=== PATIENT | male | born 1980 | race Caucasian/White ===

== ENCOUNTER 2017-03-07 12:59 | Inpatient (IN) | payer OTHER ==
--- NOTE | 2017-03-07 13:38 | ER Document Report ---
ED Medical Screen (RME) <OLIMPIA DUNLAP - Last Filed: 03/07/17 13:37> - General Information source: Patient - HPI Patient complains to provider of: Fever chills nausea vomiting right testicular discomfort for 3 days <FESTEPHANESHANA Hansen - Last Filed: 03/07/17 17:48> - General Chief Complaint: Testicular Pain Stated Complaint: TESTICLE PROBLEM Time Seen by Provider: 03/07/17 13:36 Notes: Patient is complaining of pain in the right testicle started yesterday while at work. It is sore to the touch and goes into the groin area. He is not sure if it is swollen. Also some pain in the back of his right lower leg. Recalls no injury or unusual activity for him. It hurts to walk. He says he has had pain in both testicles in the past. Denies any UTI symptoms. Today, while at work, the patient began to develop a headache and feel disoriented. He was having chills and sweats. Patient has a history of PTSD and psoriasis. (OLIMPIA DUNLAP) - Related Data Allergies/Adverse Reactions: No Known Allergies Allergy (Verified 03/20/12 12:49) Past Medical History Renal/ Medical History: Denies: Hx Peritoneal Dialysis Past Surgical History: Reports: Hx Orthopedic Surgery - R knee ACL <OLIMPIA DUNLAP - Last Filed: 03/07/17 13:37> - General Information source: Patient - Social History Frequency of alcohol use: Rare Drug Abuse: None Lives with: Family <RAJEEVSHANA Hansen - Last Filed: 03/07/17 17:48> Review of Systems - Review of Systems Constitutional: No symptoms reported EENT: No symptoms reported Cardiovascular: No symptoms reported Respiratory: No symptoms reported Gastrointestinal: No symptoms reported Genitourinary: No symptoms reported Male Genitourinary: No symptoms reported Musculoskeletal: No symptoms reported Skin: No symptoms reported Hematologic/Lymphatic: No symptoms reported Neurological/Psychological: No symptoms reported <RAJEEVSHANA Hansen - Last Filed: 03/07/17 17:48> Physical Exam - Vital signs Interpretation: Normal - General General appearance: Appears well, Alert - HEENT Head: Normocephalic, Atraumatic Eyes: Normal Pupils: PERRL - Respiratory Respiratory status: No respiratory distress Chest status: Nontender Breath sounds: Normal Chest palpation: Normal - Cardiovascular Rhythm: Regular Heart sounds: Normal auscultation Murmur: No - Abdominal Inspection: Normal Distension: No distension Bowel sounds: Normal Tenderness: Nontender Organomegaly: No organomegaly - Genitourinary Tenderness: Epididymis tender - Right sided tenderness - Back Back: Normal, Nontender - Extremities General upper extremity: Normal inspection, Nontender, Normal color, Normal ROM , Normal temperature General lower extremity: Normal inspection, Nontender, Normal color, Normal ROM , Normal temperature, Normal weight bearing. No: Luciano's sign - Neurological Neuro grossly intact: Yes Cognition: Normal Orientation: AAOx4 Comfrey Coma Scale Eye Opening: Spontaneous Juan Manuel Coma Scale Verbal: Oriented Juan Manuel Coma Scale Motor: Obeys Commands Comfrey Coma Scale Total: 15 Speech: Normal Motor strength normal: LUE, RUE, LLE, RLE Sensory: Normal - Psychological Associated symptoms: Normal affect, Normal mood - Skin Skin Temperature: Warm Skin Moisture: Dry Skin Color: Normal <SHANA BOO - Last Filed: 03/07/17 17:48> - Vital signs Vitals: Temp Pulse Resp BP 99.5 F 141 H 16 135/82 H 03/07/17 13:04 03/07/17 13:04 03/07/17 13:04 03/07/17 13:04 Course <OLIMPIA DUNLAP - Last Filed: 03/07/17 13:37> - Laboratory Result Diagrams: 03/07/17 14:30 03/07/17 14:30 <SHANA BOO - Last Filed: 03/07/17 17:48> - Re-evaluation Re-evalutation: 03/07/17 17:44 This 36-year-old male who presented to the emergency room today stating he had right testicular discomfort ongoing for about 3 days he states that he has had reasonable urinary output and that while he was doing a lot of barbecuing over the weekend he had been drinking a lot of fluid he has in fact urinated twice today. States that while he was at work he became nauseous with one episode of vomiting some dizziness and noticed that he was rather febrile. His heart rate in triage was 133 with a 101.9 temperature meaning sepsis criteria for routine evaluation lactic acid came back 3.1 with a white count of 17.4 ultrasound was obtained indicating that he did not fact have some epididymitis. CT abdomen pelvis was performed indicating that he had a nonobstructing stone in the left pole of the kidney as well as a 5 mm nodule in the right lung which should be noted that this patient is not a smoker. Chen was called for admission who stated that Dr. Powell would be happy to observe this patient on observation (SHANA BOO) - Vital Signs Vital signs: Temp Pulse Resp BP Pulse Ox 98.4 F 96 18 123/69 94 03/07/17 16:15 03/07/17 16:15 03/07/17 16:15 03/07/17 16:15 03/07/17 16:15 - Laboratory Laboratory results interpreted by me: 03/07/17 03/07/17 03/07/17 14:30 14:30 14:30 WBC 17.4 H Seg Neutrophils % 84.1 H Lymphocytes % 6.7 L Absolute Neutrophils 14.6 H Absolute Monocytes 1.6 H Glucose 127 H Lactic Acid 3.1 H Urine Ketones 03/07/17 15:59 WBC Seg Neutrophils % Lymphocytes % Absolute Neutrophils Absolute Monocytes Glucose Lactic Acid Urine Ketones TRACE H Doctor's Discharge <OLIMPIA DUNLAP - Last Filed: 03/07/17 13:37> <SHANA BOO - Last Filed: 03/07/17 17:48> - Discharge Clinical Impression: Acute epididymitis, Sepsis Disposition: ADMITTED OBSERVATION Additional Instructions: Continue observation to Dr. Powell
[2017-03-07] MEDS ORDERED: IBUPROFEN 600 MG TABLET PO ONE (13:39)
[2017-03-07] MEDS ORDERED: PROMETHAZINE HCL 25 MG TABLET PO ONE (13:39)
[2017-03-07] MEDS ORDERED: NORMAL SALINE 1000 ML 1,000 ML IV ONE (13:45)
[2017-03-07 15:02] LABS: ABSOLUTE LYMPHOCYTES (AUTO) 1.2 10^3/uL (0.5-4.7); ABSOLUTE MONOCYTES (AUTO) 1.6 10^3/uL (0.1-1.4); ABSOLUTE NEUT (AUTO) 14.6 10^3/uL (1.7-8.2); BASOPHILS % (AUTO) 0.2 % (0-2); HEMATOCRIT 46.9 % (37.9-51.0); HEMOGLOBIN 15.9 g/dL (13.5-17.0); HGB HCT DIFFERENCE 0.8; LYMPHOCYTES % (AUTO) 6.7 % (13-45); MEAN CORPUSCULAR HEMOGLOBIN 30.7 pg (27.0-33.4); MEAN CORPUSCULAR VOLUME 90 fl (80-97); RED CELL DISTRIBUTION WIDTH 13.2 % (11.5-14.0); SEGMENTED NEUTROPHILS % (AUTO) 84.1 % (42-78); WHITE BLOOD COUNT 17.4 10^3/uL (4.0-10.5)
[2017-03-07 15:23] LABS: ALANINE AMINOTRANSFERASE 37 U/L (21-72); ALBUMIN 4.6 g/dL (3.5-5.0); ALKALINE PHOSPHATASE 55 U/L (38-126); ANION GAP 16 (5-19); ASPARTATE AMINO TRANSFERASE 30 U/L (17-59); BILIRUBIN,DIRECT 0.3 mg/dL (0.0-0.4); BLOOD UREA NITROGEN 13 mg/dL (7-20); CALCIUM 10.2 mg/dL (8.4-10.2); CARBON DIOXIDE 22 mmol/L (22-30); CHLORIDE 99 mmol/L (98-107); GLUCOSE 127 mg/dL (75-110); POTASSIUM 3.7 mmol/L (3.6-5.0); SODIUM 137.4 mmol/L (137-145); TOTAL PROTEIN 7.5 g/dL (6.3-8.2)
--- NOTE | 2017-03-07 16:16 | RADIOLOGY REPORT (SQ) ---
EXAM DESCRIPTION: U/S SCROTUM W/DOPPLER COMPLETED DATE/TIME: 03/07/2017 3:55 pm REASON FOR STUDY: testicular pain COMPARISON: None. TECHNIQUE: Static and realtime nassar scale imaging of the scrotum and testes. Selected color Doppler and spectral images recorded to document blood flow. LIMITATIONS: None. FINDINGS: RIGHT: TESTICLE: Normal size, 43 x 32 x 28 mm. Normal echotexture. Normal blood flow. No mass EPIDIDYMIS: 14 x 15 x 10 mm. This is larger than on left side. There are couple small cystic areas. HYDROCELE OR VARICOCELE: No. HERNIA OR EXTRA-TESTICULAR MASS: No. OTHER: No other significant finding. LEFT: TESTICLE: Normal size, 45 x 31 x 24 mm. Normal echotexture. Normal blood flow. No mass. EPIDIDYMIS: 11 x 14 x 9 mm. Contains some small cystic areas. HYDROCELE OR VARICOCELE: No. HERNIA OR EXTRA-TESTICULAR MASS: No. OTHER: No other significant finding. IMPRESSION: 1. There is no testicular torsion. 2. There are epididymal cysts bilaterally. 3. The right epididymis is larger than the left. Is there clinical evidence of epididymitis? TECHNICAL DOCUMENTATION: JOB ID: [id number]- All Rights Reserved
[2017-03-07 16:19] LABS: APPEARANCE,URINE CLEAR; BILIRUBIN,URINE NEGATIVE (NEGATIVE); GLUCOSE, URINE NEGATIVE (NEGATIVE); KETONES,URINE TRACE mg/dL (NEGATIVE); LEUKOCYTE ESTERASE,URINE NEGATIVE (NEGATIVE); NITRITE,URINE NEGATIVE (NEGATIVE); PROTEIN,URINE NEGATIVE (NEGATIVE); URINE SPECIFIC GRAVITY 1.008; UROBILINOGEN,URINE NEGATIVE mg/dL (<2.0)
[2017-03-07] MEDS ORDERED: NORMAL SALINE 1000 ML 3,000 ML IV ONE (16:19)
[2017-03-07] MEDS ORDERED: CEFTRIAXONE INJ 1000 MG VIAL IV ONE (16:20)
--- NOTE | 2017-03-07 17:00 | RADIOLOGY REPORT (SQ) ---
EXAM DESCRIPTION: CHEST PA/LAT COMPLETED DATE/TIME: 03/07/2017 4:50 pm REASON FOR STUDY: cough COMPARISON: 03/20/2012 EXAM PARAMETERS: NUMBER OF VIEWS: two views TECHNIQUE: Digital Frontal and Lateral radiographic views of the chest acquired. RADIATION DOSE: NA LIMITATIONS: none FINDINGS: LUNGS AND PLEURA: No opacities, masses or pneumothorax. No pleural effusion. MEDIASTINUM AND HILAR STRUCTURES: No masses or contour abnormalities. HEART AND VASCULAR STRUCTURES: Heart normal size. No evidence for failure. BONES: No acute findings. HARDWARE: None in the chest. OTHER: No other significant finding. IMPRESSION: NO SIGNIFICANT RADIOGRAPHIC FINDING IN THE CHEST. TECHNICAL DOCUMENTATION: JOB ID: [id number] [employer]- All Rights Reserved
--- NOTE | 2017-03-07 17:15 | RADIOLOGY REPORT (SQ) ---
EXAM DESCRIPTION: CT ABD/PELVIS WITH IV ONLY COMPLETED DATE/TIME: 03/07/2017 4:45 pm REASON FOR STUDY: grion pain increase lactic acid COMPARISON: None. TECHNIQUE: CT scan of the abdomen and pelvis performed using helical scanning technique with dynamic intravenous contrast injection. No oral contrast. Images reviewed with lung, soft tissue, and bone windows. Reconstructed coronal and sagittal MPR images reviewed. Delayed images for evaluation of the urinary system also acquired. All images stored on PACS. All CT scanners at this facility use dose modulation, iterative reconstruction, and/or weight based d osing when appropriate to reduce radiation dose to as low as reasonably achievable (ALARA). [facility]: Dose Right [facility]: CareDose [facility]: Dose Right [facility]: Teradose 4D [facility]: [employer] CONTRAST TYPE AND DOSE: 100mL Isovue 370- low osmolar. RENAL FUNCTION: Creatinine 0.9 RADIATION DOSE: 42.28mGy. LIMITATIONS: None. FINDINGS: LOWER CHEST: Minimal dependent atelectasis or scarring. 5 mm nodule in the right lower lo be. LIVER: Normal size. No masses or dilated ducts. SPLEEN: Normal size. No focal lesions. PANCREAS: No masses. No significant calcifications. No adjacent inflammation or peripancreatic fluid collections. Pancreatic duct not dilated. GALLBLADDER: No identified stones by CT criteria. No inflammatory changes to suggest cholecystitis. ADRENAL GLANDS: No significant masses or asymmetry. RIGHT KIDNEY AND URETER: No solid masses. No significant calcifications. No hydronephrosis or hyd roureter. LEFT KIDNEY AND URETER: No solid masses. 4 mm nonobstructing stone in the lower pole. No hydronep hrosis or hydroureter. AORTA AND VESSELS: No aneurysm. No dissection. Renal arteries, SMA, celiac without stenosis. RETROPERITONEUM: No retroperitoneal adenopathy, hemorrhage or masses. BOWEL AND PERITONEAL CAVITY: No masses or inflammatory changes. No free fluid or peritoneal masses. APPENDIX: Normal. PELVIS: No mass or free fluid. Normal bladder. ABDOMINAL WALL: No masses. No hernias. BONES: No significant or acute findings. Mild degenerative disc disease at L5-S1. OTHER: No other significant finding. IMPRESSION: 1. 4 mm nonobstructing stone in the lower pole of the left kidney otherwise normal-appe aring abdomen and pelvis. 2. 5 mm nodule in the right lung base. COMMENT: FLEISCHNER CRITERIA FOR FOLLOW-UP OF PULMONARY NODULES Incidentally detected new nodules in persons 35 or older. HIGH RISK: History of smoking or other known risk factors. <6mm single solid nodule: LOW RISK: no routine followup. HIGH RISK: optional CT 12 mo. TECHNICAL DOCUMENTATION: JOB ID: [id number] Quality ID # [id number]: Final reports with documentation of one or more dose reduction techniques (e.g., Au tomated exposure control, adjustment of the mA and/or kV according to patient size, use of iterative reconstruction technique) 2010 [employer]- All Rights Reserved
--- NOTE | 2017-03-07 18:40 | EKG REPORT ---
SEVERITY:- BORDERLINE ECG - SINUS TACHYCARDIA PROBABLE LEFT ATRIAL ABNORMALITY BORDERLINE T ABNORMALITIES, INFERIOR LEADS : Confirmed by: Zaire Perez MD 07-Mar-2017 18:39:18
[2017-03-07] MEDS ORDERED: CALCIUM CARBONATE 500 MG TABLET PO PRN (19:46)
[2017-03-07] MEDS ORDERED: HYDRALAZINE HCL INJ/PF 20 MG/1 ML SDV IV PRN (19:46)
[2017-03-07] MEDS ORDERED: ACETAMINOPHEN 325 MG TABLET PO PRN (19:46)
[2017-03-07] MEDS ORDERED: MAGNESIUM HYDROXIDE SUSP 30 ML UDCUP PO PRN (19:54)
[2017-03-07] MEDS ORDERED: PROMETHAZINE HCL 25 MG TABLET PO PRN (19:54)
[2017-03-07] MEDS ORDERED: NORMAL SALINE 1000 ML 1,000 ML IV SCH (20:00)
[2017-03-07] MEDS: KETOROLAC TROMETHAMINE INJ/PF 30 MG/1 ML SDV IV PRN (20:32)
[2017-03-07 22:17] LABS: CHLAM PCR NOT DETECTED (NOT DETECT)
[2017-03-07] MEDS: DOXYCYCLINE HYCLATE 100 MG in DEXTROSE 5%-WATER 250 ML IV SCH (22:22)
[2017-03-07] MEDS: GABAPENTIN 300 MG CAPSULE PO SCH (22:22)
[2017-03-07] MEDS: HEPARIN SOD (PORCINE) 5,000 UNIT/ML 1 ML SYRINGE SUBCUT SCH (22:22)
[2017-03-08] MEDS: KETOROLAC TROMETHAMINE INJ/PF 30 MG/1 ML SDV IV PRN ×3 (03:36→18:17)
[2017-03-08] MEDS: HEPARIN SOD (PORCINE) 5,000 UNIT/ML 1 ML SYRINGE SUBCUT SCH ×3 (05:28→22:17)
--- NOTE | 2017-03-08 05:57 | PDOC H&P ---
History of Present Illness Admission Date/PCP: 03/07/17 19:55 Patient complains of: Testicular pain History of Present Illness: PERLA RAMIREZ is a 36 year old male with a past medical history of morbid obesity, Depression, Chronic back pain and psoriasis who had been in his usual state of health recently 3 days ago he was noted pain to his right testicle associated with subjective fever and chills. Think him to seek evaluation in the emergency room where he was found to have physical exam suggestive of epididymitis, hypotension with leukocytosis and referred to the hospitalist for admission. Additional workup of a scrotal ultrasound is negative for testicular torsion. A CT of the abdomen and pelvis show nonobstructing left- sided renal stone and a 5 mm right lung nodule recommending follow-up and 6 months. Denies new sexual partner, trauma or previous episode of testicular pain. Past Medical History Endocrine Medical History: Reports: Obesity Skin Medical History: Reports: Psoriasis Psychiatric Medical History: Reports: Depression Past Surgical History Past Surgical History: Reports: Orthopedic Surgery - R knee ACL Social History Information Source: Patient Lives with: Family Smoking Status: Never Smoker Frequency of Alcohol Use: Rare Hx Recreational Drug Use: No Drugs: None Hx Prescription Drug Abuse: No - Advance Directive Resuscitation Status: Full Code Family History Family History: Hypertension Parental Family History Reviewed: Yes Children Family History Reviewed: Yes Sibling(s) Family History Reviewed.: Yes Medication/Allergy Home Medications: Gabapentin [Neurontin 300 mg Capsule] 300 mg PO Q12 03/07/17 Allergies/Adverse Reactions: No Known Allergies Allergy (Verified 03/20/12 12:49) Review of Systems Constitutional: ABSENT: chills, fever(s), headache(s), weight gain, weight loss Eyes: ABSENT: visual disturbances Ears: ABSENT: hearing changes Cardiovascular: ABSENT: chest pain, dyspnea on exertion, edema, orthropnea, palpitations Respiratory: ABSENT: cough, hemoptysis Gastrointestinal: ABSENT: abdominal pain, constipation, diarrhea, hematemesis, hematochezia, nausea, vomiting Genitourinary: ABSENT: dysuria, hematuria Musculoskeletal: ABSENT: joint swelling Integumentary: ABSENT: rash, wounds Neurological: ABSENT: abnormal gait, abnormal speech, confusion, dizziness, focal weakness, syncope Psychiatric: ABSENT: anxiety, depression, homidical ideation, suicidal ideation Endocrine: ABSENT: cold intolerance, heat intolerance, polydipsia, polyuria Hematologic/Lymphatic: ABSENT: easy bleeding, easy bruising Physical Exam Vital Signs: Temp Pulse Resp BP Pulse Ox 97.9 F 113 H 18 139/82 H 97 03/08/17 04:00 03/08/17 04:00 03/08/17 04:00 03/08/17 04:00 03/08/17 04:00 Intake & Output 03/06/17 03/07/17 03/08/17 11:59 11:59 11:59 Intake Total 2950 Output Total 850 Balance 2100 General appearance: PRESENT: mild distress, well-developed, well-nourished Head exam: PRESENT: atraumatic, normocephalic Eye exam: PRESENT: conjunctiva pink, EOMI, PERRLA. ABSENT: scleral icterus Ear exam: PRESENT: normal external ear exam Mouth exam: PRESENT: moist, tongue midline Neck exam: ABSENT: carotid bruit, JVD, lymphadenopathy, thyromegaly Respiratory exam: PRESENT: clear to auscultation alma. ABSENT: rales, rhonchi, wheezes Cardiovascular exam: PRESENT: RRR. ABSENT: diastolic murmur, rubs, systolic murmur Pulses: PRESENT: normal dorsalis pedis pul Vascular exam: PRESENT: normal capillary refill GI/Abdominal exam: PRESENT: normal bowel sounds, soft. ABSENT: distended, guarding, mass, organolmegaly, rebound, tenderness Rectal exam: PRESENT: deferred Gentrourinary exam: PRESENT: testicular tenderness Extremities exam: PRESENT: full ROM. ABSENT: calf tenderness, clubbing, pedal edema Neurological exam: PRESENT: alert, awake, oriented to person, oriented to place , oriented to time, oriented to situation, CN II-XII grossly intact. ABSENT: motor sensory deficit Psychiatric exam: PRESENT: appropriate affect, normal mood. ABSENT: homicidal ideation, suicidal ideation Skin exam: PRESENT: dry, intact, warm. ABSENT: cyanosis, rash Adult Front & Back Image: 1 - Pain to palpation without erythema, induration or heat 2 - Mild tender inguinal lymphadenopathy Results Impressions: Scrotum Ultrasound 03/07/17 13:55 IMPRESSION: 1. There is no testicular torsion. 2. There are epididymal cysts bilaterally. 3. The right epididymis is larger than the left. Is there clinical evidence of epididymitis? Abdomen/Pelvis CT 03/07/17 16:15 IMPRESSION: 1. 4 mm nonobstructing stone in the lower pole of the left kidney otherwise normal-appearing abdomen and pelvis. 2. 5 mm nodule in the right lung base. Chest X-Ray 03/07/17 16:17 IMPRESSION: NO SIGNIFICANT RADIOGRAPHIC FINDING IN THE CHEST. Assessment & Plan - Diagnosis (1) Sepsis Is this a current diagnosis for this admission?: YesPlan: Fluid challenge empiric antibiotics reevaluation of chemistry CBC and blood culture (2) Acute epididymitis Is this a current diagnosis for this admission?: YesPlan: Unclear cause no exceptional risk for STD. That said urethral swab pain for culture and Gram stain. Blood culture obtained empiric ceftriaxone and doxycycline initiated, symptomatic management (3) Nodule of right lung Is this a current diagnosis for this admission?: YesPlan: Repeat chest CT in 6 months - Time Time Spent: 30 to 50 Minutes - Inpatient Certification Medical Necessity: Need Close Monitoring Due to Risk of Patient Decompensation
[2017-03-08 06:43] LABS: MEAN CORPUSCULAR VOLUME 90 fl (80-97)
[2017-03-08 06:48] LABS: ABSOLUTE MONOCYTES (AUTO) 1.1 10^3/uL (0.1-1.4); BASOPHILS % (AUTO) 0.2 % (0-2); HEMATOCRIT 39.7 % (37.9-51.0); HEMOGLOBIN 13.7 g/dL (13.5-17.0); HGB HCT DIFFERENCE 1.4; LYMPHOCYTES % (AUTO) 13.9 % (13-45); MEAN CORPUSCULAR HEMOGLOBIN 31.1 pg (27.0-33.4); MEAN CORPUSCULAR HGB CONC 34.4 g/dL (32.0-36.0); MONOCYTES % (AUTO) 7.6 % (3-13); RED CELL DISTRIBUTION WIDTH 13.2 % (11.5-14.0); SEGMENTED NEUTROPHILS % (AUTO) 78.3 % (42-78); WHITE BLOOD COUNT 14.1 10^3/uL (4.0-10.5)
[2017-03-08 06:59] LABS: ANION GAP 10 (5-19); BLOOD UREA NITROGEN 11 mg/dL (7-20); CALCIUM 8.2 mg/dL (8.4-10.2); CARBON DIOXIDE 20 mmol/L (22-30); CHLORIDE 107 mmol/L (98-107); CREATININE RESULT 0.85 mg/dL (0.52-1.25); GLUCOSE 96 mg/dL (75-110); POTASSIUM 3.7 mmol/L (3.6-5.0); SODIUM 136.6 mmol/L (137-145)
[2017-03-08] MEDS: DOXYCYCLINE HYCLATE 100 MG in DEXTROSE 5%-WATER 250 ML IV SCH ×2 (10:59→22:17)
[2017-03-08] MEDS: DOCUSATE SODIUM 100 MG CAPSULE PO SCH ×2 (10:59→18:17)
[2017-03-08] MEDS: GABAPENTIN 300 MG CAPSULE PO SCH ×2 (10:59→22:17)
--- NOTE | 2017-03-08 16:34 | PDOC PROGRESS REPORT ---
Subjective Progress Note for:: 03/08/17 Subjective:: Patient was seen in the rounds. He is resting comfortably in bed at the present time. He continues to have some mild pain in the right groin. He is also noted some pain in the right posterior calf with associated erythema. There is also warm to the touch. He denies any chest pain, dizziness or dyspnea. He denies any nausea, vomiting or abdominal pain. He denies any significant arthralgias or myalgias at the present time. He feels his right lower extremity is somewhat more swollen than the left. He has multiple psoriasis lesions on all extremities. Physical Exam Vital Signs: Temp Pulse Resp BP Pulse Ox 99.4 F 102 H 20 149/85 H 98 03/08/17 16:19 03/08/17 16:19 03/08/17 16:19 03/08/17 16:19 03/08/17 16:19 Intake & Output 03/07/17 03/08/17 03/09/17 06:59 06:59 06:59 Intake Total 2950 Output Total 1200 Balance 1750 Weight 169.6 kg General appearance: PRESENT: no acute distress, morbidly obese, well-developed, well-nourished Head exam: PRESENT: atraumatic, normocephalic Eye exam: PRESENT: conjunctival injection Ear exam: PRESENT: normal external ear exam Mouth exam: PRESENT: moist, tongue midline Neck exam: ABSENT: carotid bruit, JVD, lymphadenopathy, thyromegaly Respiratory exam: PRESENT: clear to auscultation alma. ABSENT: rales, rhonchi, wheezes Cardiovascular exam: PRESENT: bradycardia Pulses: PRESENT: normal dorsalis pedis pul Vascular exam: PRESENT: normal capillary refill GI/Abdominal exam: PRESENT: normal bowel sounds, soft. ABSENT: distended, guarding, mass, organolmegaly, rebound, tenderness Rectal exam: PRESENT: deferred Gentrourinary exam: PRESENT: scrotal swelling, testicular tenderness - right Extremities exam: PRESENT: full ROM, tenderness, +1 edema - right lower extremity. ABSENT: calf tenderness, clubbing, pedal edema Neurological exam: PRESENT: alert, awake, oriented to person, oriented to place , oriented to time, oriented to situation, CN II-XII grossly intact. ABSENT: motor sensory deficit Skin exam: PRESENT: erythema, warm, other - 8cm x 10 cm area of erythema there appears to be 1 cm lesion that is raised in the middle of the area, probable insect bite. Severe psoriasis Results Laboratory Results: 03/08/17 06:13 03/08/17 06:13 03/08/17 03/08/17 06:13 06:13 WBC 14.1 H RBC 4.40 Hgb 13.7 D Hct 39.7 MCV 90 MCH 31.1 MCHC 34.4 RDW 13.2 Plt Count 185 Seg Neutrophils % 78.3 H Lymphocytes % 13.9 Monocytes % 7.6 Eosinophils % 0.0 Basophils % 0.2 Absolute Neutrophils 11.0 H Absolute Lymphocytes 2.0 Absolute Monocytes 1.1 Absolute Eosinophils 0.0 Absolute Basophils 0.0 Sodium 136.6 L Potassium 3.7 Chloride 107 Carbon Dioxide 20 L Anion Gap 10 BUN 11 Creatinine 0.85 Est GFR ( Amer) > 60 Est GFR (Non-Af Amer) > 60 Glucose 96 Calcium 8.2 L Impressions: Scrotum Ultrasound 03/07/17 13:55 IMPRESSION: 1. There is no testicular torsion. 2. There are epididymal cysts bilaterally. 3. The right epididymis is larger than the left. Is there clinical evidence of epididymitis? Abdomen/Pelvis CT 03/07/17 16:15 IMPRESSION: 1. 4 mm nonobstructing stone in the lower pole of the left kidney otherwise normal-appearing abdomen and pelvis. 2. 5 mm nodule in the right lung base. Chest X-Ray 03/07/17 16:17 IMPRESSION: NO SIGNIFICANT RADIOGRAPHIC FINDING IN THE CHEST. Assessment & Plan - Diagnosis (1) Acute epididymitis Is this a current diagnosis for this admission?: YesPlan: Continue IV broad-spectrum antibiotics cultures are pending (2) Cellulitis of right lower extremity without foot Plan: Probable insect bite associated cellulitis. Patient on IV broad-spectrum antibiotics we will continue to monitor. We will get a venous duplex of the right leg to rule out DVT. (3) Nodule of right lung Is this a current diagnosis for this admission?: YesPlan: Will arrange follow up CT in 6 months (4) Morbid obesity with BMI of 50.0-59.9, adult Is this a current diagnosis for this admission?: YesPlan: Counseled (5) Psoriasis Is this a current diagnosis for this admission?: YesPlan: Continue home medication - Time Time Spent with patient: 25-34 minutes Critical Time spent with patient: 15-24 minutes Medications reviewed and adjusted accordingly: Yes
[2017-03-09] MEDS: KETOROLAC TROMETHAMINE INJ/PF 30 MG/1 ML SDV IV PRN ×2 (03:09→11:18)
[2017-03-09 05:40] LABS: ABSOLUTE LYMPHOCYTES (AUTO) 1.8 10^3/uL (0.5-4.7); ABSOLUTE NEUT (AUTO) 6.7 10^3/uL (1.7-8.2); BASOPHILS % (AUTO) 0.3 % (0-2); EOSINOPHILS % (AUTO) 0.4 % (0-6); HEMATOCRIT 42.2 % (37.9-51.0); HEMOGLOBIN 14.3 g/dL (13.5-17.0); HGB HCT DIFFERENCE 0.7; LYMPHOCYTES % (AUTO) 19.1 % (13-45); MEAN CORPUSCULAR HEMOGLOBIN 30.8 pg (27.0-33.4); MEAN CORPUSCULAR HGB CONC 33.9 g/dL (32.0-36.0); MEAN CORPUSCULAR VOLUME 91 fl (80-97); MONOCYTES % (AUTO) 10.7 % (3-13); RED BLOOD COUNT 4.66 10^6/uL (4.35-5.55); RED CELL DISTRIBUTION WIDTH 13.3 % (11.5-14.0); SEGMENTED NEUTROPHILS % (AUTO) 69.5 % (42-78); WHITE BLOOD COUNT 9.6 10^3/uL (4.0-10.5)
[2017-03-09] MEDS: HEPARIN SOD (PORCINE) 5,000 UNIT/ML 1 ML SYRINGE SUBCUT SCH ×3 (05:52→21:51)
[2017-03-09] MEDS: DOXYCYCLINE HYCLATE 100 MG in DEXTROSE 5%-WATER 250 ML IV SCH (09:26)
[2017-03-09] MEDS: DOCUSATE SODIUM 100 MG CAPSULE PO SCH ×2 (09:26→17:01)
[2017-03-09] MEDS: GABAPENTIN 300 MG CAPSULE PO SCH ×2 (09:26→21:51)
--- NOTE | 2017-03-09 13:32 | PDOC PROGRESS REPORT ---
Subjective Progress Note for:: 03/09/17 Subjective:: Patient was seen in the rounds. He is resting comfortably in bed at the present time. His pain in the right groin is much improved. His right testicular pain and swelling is resolved. The right lower leg remains erythemic but reduced in size and no longer warm to the touch. He denies any chest pain, dizziness or dyspnea. He denies any nausea, vomiting or abdominal pain. He denies any significant arthralgias or myalgias at the present time. He feels his right lower extremity is somewhat more swollen than the left. He has multiple psoriasis lesions on all extremities. Physical Exam Vital Signs: Temp Pulse Resp BP Pulse Ox 98.2 F 85 18 152/114 H 98 03/09/17 11:25 03/09/17 11:25 03/09/17 11:25 03/09/17 11:25 03/09/17 11:25 Intake & Output 03/08/17 03/09/17 03/10/17 06:59 06:59 06:59 Intake Total 2950 2135 Output Total 1200 950 Balance 1750 1185 Weight 171.4 kg Results Laboratory Results: 03/09/17 04:41 03/08/17 06:13 03/09/17 04:41 WBC 9.6 RBC 4.66 Hgb 14.3 Hct 42.2 MCV 91 MCH 30.8 MCHC 33.9 RDW 13.3 Plt Count 177 Seg Neutrophils % 69.5 Lymphocytes % 19.1 Monocytes % 10.7 Eosinophils % 0.4 Basophils % 0.3 Absolute Neutrophils 6.7 Absolute Lymphocytes 1.8 Absolute Monocytes 1.0 Absolute Eosinophils 0.0 Absolute Basophils 0.0 Impressions: Scrotum Ultrasound 03/07/17 13:55 IMPRESSION: 1. There is no testicular torsion. 2. There are epididymal cysts bilaterally. 3. The right epididymis is larger than the left. Is there clinical evidence of epididymitis? Abdomen/Pelvis CT 03/07/17 16:15 IMPRESSION: 1. 4 mm nonobstructing stone in the lower pole of the left kidney otherwise normal-appearing abdomen and pelvis. 2. 5 mm nodule in the right lung base. Chest X-Ray 03/07/17 16:17 IMPRESSION: NO SIGNIFICANT RADIOGRAPHIC FINDING IN THE CHEST. Assessment & Plan - Diagnosis (1) Cellulitis of right lower extremity without foot Plan: Probable insect bite associated cellulitis. Patient on IV broad-spectrum antibiotics we will continue to monitor. Leucocytosis has resolved as has chills and fevers (2) Acute epididymitis Is this a current diagnosis for this admission?: YesPlan: Continue IV broad-spectrum antibiotics cultures are pending (3) Nodule of right lung Is this a current diagnosis for this admission?: YesPlan: Will arrange follow up CT in 6 months (4) Morbid obesity with BMI of 50.0-59.9, adult Is this a current diagnosis for this admission?: YesPlan: Counseled (5) Psoriasis Is this a current diagnosis for this admission?: YesPlan: Continue home medication - Time Time Spent with patient: 25-34 minutes Critical Time spent with patient: 15-24 minutes Medications reviewed and adjusted accordingly: Yes Anticipated discharge: Home Within: within 24 hours
--- NOTE | 2017-03-09 16:25 | XCELERA REPORT ---
[address] [address] Lower Extremity Venous Evaluation Name: PERLA RAMIREZ Age: 36 yrs Gender: Male : 1980 Patient Status: Inpatient Patient Location: 4N\S\[facility]\S\A Study Date: 03/08/2017 03:51 PM Procedure: Color flow and duplex imaging of the veins of the right lower extremity as well as the left Common Femoral vein. Reason For Study: Redness and swelling right lower leg Ordering Physician: ANGELA JACKSON Performed By: Miriam Mcnamara Right Sided Venous Evaluation Normal vessel filling wall to wall, compression and augmentation as well as Colour flow down to the infrageniculate veins. Left Sided Venous Evaluation The left common femoral vein is fully compressible. Spontaneous and phasic flow is present in the left common femoral vein. Interpretation Summary No duplex evidence of DVT or obstruction in the right lower extremity nor in the left Common Femoral vein. : ANGELA JACKSON > Armando Wild
[2017-03-09] MEDS: CEPHALEXIN 500 MG CAPSULE PO SCH ×2 (17:01→23:08)
[2017-03-09] MEDS: KETOROLAC TROMETHAMINE 10 MG TABLET PO PRN (18:08)
[2017-03-09] MEDS: DOXYCYCLINE HYCLATE 100 MG TABLET PO SCH (21:51)
[2017-03-10] MEDS: KETOROLAC TROMETHAMINE 10 MG TABLET PO PRN (06:10)
[2017-03-10] MEDS: HEPARIN SOD (PORCINE) 5,000 UNIT/ML 1 ML SYRINGE SUBCUT SCH (06:11)
[2017-03-10] MEDS: CEPHALEXIN 500 MG CAPSULE PO SCH (06:11)
[2017-03-10] MEDS: DOCUSATE SODIUM 100 MG CAPSULE PO SCH (09:06)
[2017-03-10] MEDS: GABAPENTIN 300 MG CAPSULE PO SCH (09:06)
[2017-03-10] MEDS: DOXYCYCLINE HYCLATE 100 MG TABLET PO SCH (09:06)
[2017-03-10 09:43] VITALS: BP 127/81
--- NOTE | 2017-03-10 13:52 | PDOC DISCHARGE SUMMARY ---
General - Admit/Disc Date/PCP Admission Date/Primary Care Provider: 03/09/17 11:43 Discharge Date: 03/10/17 - Discharge Diagnosis (1) Cellulitis of right lower extremity without foot Is this a current diagnosis for this admission?: YesSummary: Patient will be discharged on Keflex and Doxycyline (2) Acute epididymitis Is this a current diagnosis for this admission?: YesSummary: Symptoms resolved. Cultures negative (3) Nodule of right lung Is this a current diagnosis for this admission?: YesSummary: Follow up in [address] of the chest with contrast (4) Morbid obesity with BMI of 50.0-59.9, adult Is this a current diagnosis for this admission?: YesSummary: Counseled (5) Psoriasis Is this a current diagnosis for this admission?: YesSummary: Refer to dermatology - Additional Information Resuscitation Status: Full Code Discharge Diet: Regular Discharge Activity: Activity As Tolerated, Balance Activity w/Rest, Keep Legs Elevated Home Medications: Gabapentin [Neurontin 300 mg Capsule] 300 mg PO Q12 03/07/17 Cephalexin Monohydrate [Keflex 500 mg Capsule] 500 mg PO Q6 #32 capsule Doxycycline Hyclate [Vibramycin 100 mg Tablet] 100 mg PO Q12 #18 tablet Ketorolac Tromethamine [Toradol 10 mg Tablet] 10 mg PO Q6HP PRN #20 tablet 03/10 History of Present Illness History of Present Illness: PERLA RAMIREZ is a 36 year old male with a past medical history of morbid obesity, Depression, Chronic back pain and psoriasis who had been in his usual state of health recently 3 days ago he was noted pain to his right testicle associated with subjective fever and chills. Think him to seek evaluation in the emergency room where he was found to have physical exam suggestive of epididymitis, hypotension with leukocytosis and referred to the hospitalist for admission. Additional workup of a scrotal ultrasound is negative for testicular torsion. A CT of the abdomen and pelvis show nonobstructing left- sided renal stone and a 5 mm right lung nodule recommending follow-up and 6 months. Denies new sexual partner, trauma or previous episode of testicular pain. Hospital Course Hospital Course: Patient was admitted to telemetry floor and started on IV broad antibiotic therapy and blood, urine and penile cultures were done. His groin pain resolved over the first 24 hours. He was noted to have a large area of erythema on the posterior surface of his right lower extremity. There appeared to be an insect bite in the center of the erythemic area. The area measures approximately 8 cm x 10 time with irregular border and was warm to the touch. Physical Exam Vital Signs: Temp Pulse Resp BP Pulse Ox 98.0 F 82 20 127/81 H 95 03/10/17 09:40 03/10/17 09:40 03/10/17 09:40 03/10/17 09:40 03/10/17 09:40 Intake & Output 03/09/17 03/10/17 03/11/17 06:59 06:59 06:59 Intake Total 730 Balance 730 Weight 169.3 kg General appearance: PRESENT: no acute distress, morbidly obese, well-developed, well-nourished Head exam: PRESENT: atraumatic, normocephalic Eye exam: PRESENT: conjunctiva pale Ear exam: PRESENT: normal external ear exam Mouth exam: PRESENT: moist, tongue midline Neck exam: ABSENT: carotid bruit, JVD, lymphadenopathy, thyromegaly Respiratory exam: PRESENT: clear to auscultation alma. ABSENT: rales, rhonchi, wheezes Cardiovascular exam: PRESENT: RRR. ABSENT: diastolic murmur, rubs, systolic murmur Pulses: PRESENT: normal dorsalis pedis pul Vascular exam: PRESENT: normal capillary refill GI/Abdominal exam: PRESENT: normal bowel sounds, soft. ABSENT: distended, guarding, mass, organolmegaly, rebound, tenderness Extremities exam: PRESENT: calf tenderness, full ROM, +1 edema - right lower leg Musculoskeletal exam: PRESENT: ambulatory, full ROM, tenderness Neurological exam: PRESENT: alert, awake, oriented to person, oriented to place , oriented to time, oriented to situation, CN II-XII grossly intact. ABSENT: motor sensory deficit Skin exam: PRESENT: dry, intact, warm. ABSENT: cyanosis, rash Results Impressions: Scrotum Ultrasound 03/07/17 13:55 IMPRESSION: 1. There is no testicular torsion. 2. There are epididymal cysts bilaterally. 3. The right epididymis is larger than the left. Is there clinical evidence of epididymitis? Abdomen/Pelvis CT 03/07/17 16:15 IMPRESSION: 1. 4 mm nonobstructing stone in the lower pole of the left kidney otherwise normal-appearing abdomen and pelvis. 2. 5 mm nodule in the right lung base. Chest X-Ray 03/07/17 16:17 IMPRESSION: NO SIGNIFICANT RADIOGRAPHIC FINDING IN THE CHEST. Qualifiers PATEINT BEING DISCHARGED WITH ANY OF THE FOLLOWING DIAGNOSIS?: No Plan Discharge Plan: Home with family Time Spent: Less than 30 Minutes
== END 2017-03-10 10:30 | disposition home or self-care (01) | DRG 728 ==
LOC: ER 12:59 → UNDOADMOB 17:58 → EH 17:58 → 4N 18:45 → EH 18:45 → 4N 19:55 → EH 19:55 → OBSVTOIN 03-09 11:43
PROVIDERS: ADMIT Internal Medicine; ATTEND Internal Medicine
DX: N45.1 Epididymitis (principal); L03.115 Cellulitis of right lower limb; Z68.43 Body mass index [BMI] 50.0-59.9, adult; E66.01 Morbid (severe) obesity due to excess calories; L40.9 Psoriasis, unspecified; R91.1 Solitary pulmonary nodule; G89.29 Other chronic pain; M54.9 Dorsalgia, unspecified; F32.9 Major depressive disorder, single episode, unspecified; N20.0 Calculus of kidney; Z82.49 Family history of ischemic heart disease and other diseases of the circulatory system; F43.10 Post-traumatic stress disorder, unspecified
CPT/HCPCS: 36415; 71020; 74177; 76870; 80048; 80053; 81001; 83605; 85025; 87040; 87070; 87086; 87205; 87491; 87591; 93005; 93010; 93971; 93976; 96361; 96365; 99285; G0378; J0696; J1644; J1885; J3490; J7030; J7060

== ENCOUNTER 2018-07-30 12:41 | Emergency (ER) | payer OTHER ==
--- NOTE | 2018-07-30 14:05 | ER Document Report ---
ED Extremity Problem, Lower - General Chief Complaint: Leg Pain Stated Complaint: RIGHT LEG PAIN Time Seen by Provider: 07/30/18 14:05 Mode of Arrival: Ambulatory Information source: Patient Notes: 38-year-old [facility] with chronic widespread psoriasis comes in today with third episode of right lower extremity cellulitis. The first episode he had to stay in the hospital for 3 days because he waited so long. The second episode he was given oral antibiotics and did fine at home. This episode he was sent from his primary care doctor because they were concerned about a DVT they have not given him any antibiotics yet. He does have symptoms of fever and generalized myalgias reoccurrence of the red warm swollen right lower leg. He states earlier today that he had tender swollen right inguinal lymph nodes which are now gone. TRAVEL OUTSIDE OF THE [place] IN LAST 30 DAYS: No - Related Data Allergies/Adverse Reactions: No Known Allergies Allergy (Verified 07/30/18 12:41) Past Medical History - General Information source: Patient - Social History Smoking Status: Former Smoker Lives with: Spouse/Significant other Family History: Hypertension - Medical History Notes: Obesity Renal/ Medical History: Denies: Hx Peritoneal Dialysis Skin Medical History: Reports Hx Psoriasis - Severe Psychiatric Medical History: Reports: Hx Depression Past Surgical History: Reports: Hx Orthopedic Surgery - R knee ACL - Immunizations Hx Diphtheria, Pertussis, Tetanus Vaccination: No Review of Systems - Review of Systems Constitutional: See HPI EENT: No symptoms reported Cardiovascular: No symptoms reported Respiratory: No symptoms reported Gastrointestinal: No symptoms reported Genitourinary: No symptoms reported Male Genitourinary: No symptoms reported Musculoskeletal: See HPI Skin: See HPI Hematologic/Lymphatic: No symptoms reported Neurological/Psychological: No symptoms reported Physical Exam - Vital signs Vitals: Temp Pulse Resp BP Pulse Ox 99.1 F 128 H 24 H 151/96 H 100 07/30/18 13:13 07/30/18 13:13 07/30/18 13:13 07/30/18 13:13 07/30/18 13:13 Interpretation: Tachycardic - General General appearance: Appears well, Alert - HEENT Head: Normocephalic, Atraumatic Eyes: Normal Pupils: PERRL Neck: Supple. No: Lymphadenopathy - Respiratory Respiratory status: No respiratory distress Chest status: Nontender Breath sounds: Normal Chest palpation: Normal - Cardiovascular Rhythm: Tachycardia Heart sounds: Normal auscultation Murmur: No - Abdominal Inspection: Normal Distension: No distension Bowel sounds: Normal Tenderness: Nontender Organomegaly: No organomegaly - Back Back: Normal, Nontender - Extremities General upper extremity: Normal inspection, Nontender, Normal color, Normal ROM , Normal temperature General lower extremity: Normal inspection, Nontender, Normal color, Normal ROM , Normal temperature, Normal weight bearing. No: Luciano's sign Calf: Tender - hot, dense mid posterior right lower leg cellulitic tissue Foot: Other - 2+ dp - Neurological Neuro grossly intact: Yes Cognition: Normal Orientation: AAOx4 [place] Coma Scale Eye Opening: Spontaneous Juan Manuel Coma Scale Verbal: Oriented Juan Manuel Coma Scale Motor: Obeys Commands Juan Manuel Coma Scale Total: 15 Speech: Normal Motor strength normal: LUE, RUE, LLE, RLE Sensory: Normal - Psychological Associated symptoms: Normal affect, Normal mood - Skin Skin Temperature: Warm Skin Moisture: Dry Skin Color: Normal Skin irregularity: Rash - Extensive plaque inflammatory psoriasis generalized body Course - Re-evaluation Re-evalutation: 07/30/18 15:17 Preliminary venous Doppler ultrasound is negative per tech the radiologist is reading it. 07/30/18 final report is negative. will tx for strept staph cellulitis although no hx of MRSA. - Vital Signs Vital signs: Temp Pulse Resp BP Pulse Ox 97.8 F 107 H 18 115/63 95 07/30/18 15:42 07/30/18 16:59 07/30/18 16:59 07/30/18 16:59 07/30/18 16:59 - Laboratory Result Diagrams: 07/30/18 14:50 07/30/18 14:50 Laboratory results interpreted by me: 07/30/18 07/30/18 14:50 14:50 WBC 18.7 H Seg Neutrophils % 86.3 H Lymphocytes % 5.5 L Absolute Neutrophils 16.2 H Absolute Monocytes 1.5 H Sodium 136.3 L Total Bilirubin 1.5 H Discharge - Discharge Clinical Impression: Cellulitis right posterior calf Condition: Good Disposition: HOME, SELF-CARE Instructions: Acetaminophen, Cellulitis ([facility]), Cephalexin ([facility]), Elevation & Warmth ([facility]), Ibuprofen (General) ([facility]), Rocephin ([facility]), Sulfa Medications ([facility]) Additional Instructions: warm compress elevate recheck your leg at your doctor in 48 hours, sooner if worse copy of labs and imaging result given to you to ER if fever, vomiting, worsening symptoms Prescriptions: Cephalexin Monohydrate [Keflex 500 mg Capsule] 500 mg PO QID #28 capsule Sulfamethoxazole/Trimethoprim [Sulfamethoxazole-Tmp Ds Tablet] 1 each PO BID # 14 tablet Forms: Return to Work
[2018-07-30] MEDS ORDERED: CEFTRIAXONE 1 GM/D5W RTU 50 ML IV ONE ×2 (14:16→14:19)
[2018-07-30] MEDS ORDERED: RINGERS SOLUTION,LACTATED 1,000 ML IV ONE (14:20)
[2018-07-30] MEDS ORDERED: VANCOMYCIN HCL INJ 1000 MG VIAL IV ONE (14:23)
[2018-07-30] MEDS ORDERED: CEFTRIAXONE 1 GM/D5W RTU 1 GM/50 ML RTUPB IV ONE (15:00)
[2018-07-30] MEDS ORDERED: ONDANSETRON HCL INJ/PF 4 MG/2 ML SDV IV ONE (15:16)
[2018-07-30] MEDS ORDERED: HYDROMORPHONE HCL INJ/PF 2 MG/ML AMPULE IV ONE (15:16)
[2018-07-30 15:17] LABS: ABSOLUTE BASOPHILS # (AUTO) 0.1 10^3/uL (0.0-0.2); ABSOLUTE MONOCYTES (AUTO) 1.5 10^3/uL (0.1-1.4); ABSOLUTE NEUT (AUTO) 16.2 10^3/uL (1.7-8.2); BASOPHILS % (AUTO) 0.4 % (0-2); HEMATOCRIT 46.2 % (37.9-51.0); HEMOGLOBIN 15.9 g/dL (13.5-17.0); LYMPHOCYTES % (AUTO) 5.5 % (13-45); MEAN CORPUSCULAR HEMOGLOBIN 30.5 pg (27.0-33.4); MEAN CORPUSCULAR HGB CONC 34.3 g/dL (32.0-36.0); MEAN CORPUSCULAR VOLUME 89 fl (80-97); MONOCYTES % (AUTO) 7.8 % (3-13); PLATELET COUNT 250 10^3/uL (150-450); RED BLOOD COUNT 5.19 10^6/uL (4.35-5.55); RED CELL DISTRIBUTION WIDTH 13.2 % (11.5-14.0); SEGMENTED NEUTROPHILS % (AUTO) 86.3 % (42-78); TOTAL CELLS COUNTED % (AUTO) 100 %; WHITE BLOOD COUNT 18.7 10^3/uL (4.0-10.5)
[2018-07-30] MEDS ORDERED: ACETAMINOPHEN 325 MG TABLET PO ONE (15:23)
--- NOTE | 2018-07-30 15:35 | RADIOLOGY REPORT (SQ) ---
EXAM DESCRIPTION: VENOUS UNILATERAL LOWER COMPLETED DATE/TIME: 07/30/2018 3:27 pm REASON FOR STUDY: ? DVT right lower leg COMPARISON: None. TECHNIQUE: Dynamic and static nassar scale and color images acquired of the right leg venous system. S elected spectral images acquired with additional compression and augmentation maneuvers. The contrala teral common femoral vein and saphenofemoral junction were also imaged. Images stored on PACS. LIMITATIONS: None. FINDINGS: COMMON FEMORAL: Normal phasicity, compression and augmentation. No visualized echogenic ma terial on nassar scale. No defects on color images. FEMORAL: Normal compression and augmentation. No visualized echogenic material on nassar scale. No defe cts on color images. POPLITEAL: Normal compression, augmentation. No visualized echogenic material on nassar scale. No defec ts on color images. CALF VESSELS: Normal compression, augmentation. No visualized echogenic material on nassar scale. No de fects on color images. GSV and SSV: Normal compression, augmentation. No visualized echogenic material on nassar scale. No def ects on color images. ANY DEEP VENOUS INSUFFICIENCY: Not evaluated. ANY EVIDENCE OF POPLITEAL CYST: No. OTHER: No other significant finding. CONTRALATERAL COMMON FEMORAL VEIN AND SAPHENOFEMORAL JUNCTION: Normal phasicity, compression and augmentation. No visualized echogenic material on nassar scale. No de fects on color images. IMPRESSION: NO EVIDENCE DVT OR SVT IN THE RIGHT LEG. TECHNICAL DOCUMENTATION: JOB ID: [id number]- All Rights Reserved Reading location - IP/workstation name: [facility]
[2018-07-30] MEDS ORDERED: KETOROLAC TROMETHAMINE INJ/PF 30 MG/1 ML SDV IV ONE (15:54)
[2018-07-30 15:57] LABS: ALANINE AMINOTRANSFERASE 29 U/L (21-72); ALBUMIN 4.5 g/dL (3.5-5.0); ALKALINE PHOSPHATASE 56 U/L (38-126); ANION GAP 8 (5-19); ASPARTATE AMINO TRANSFERASE 51 U/L (17-59); BILIRUBIN,DIRECT 0.4 mg/dL (0.0-0.4); BILIRUBIN,TOTAL 1.5 mg/dL (0.2-1.3); BLOOD UREA NITROGEN 14 mg/dL (7-20); CALCIUM 9.8 mg/dL (8.4-10.2); CARBON DIOXIDE 30 mmol/L (22-30); CHLORIDE 98 mmol/L (98-107); GLUCOSE 100 mg/dL (75-110); POTASSIUM 4.4 mmol/L (3.6-5.0); SODIUM 136.3 mmol/L (137-145); TOTAL PROTEIN 8.1 g/dL (6.3-8.2)
[2018-07-30 17:00] VITALS: BP 115/63
== END 2018-07-30 18:33 | disposition home or self-care (01) ==
LOC: ER 12:41
DX: L03.115 Cellulitis of right lower limb (principal); M79.604 Pain in right leg; R50.9 Fever, unspecified; M79.10 Myalgia, unspecified site; Z87.891 Personal history of nicotine dependence
CPT/HCPCS: 99284; 96375; 96365; 96366; 96367; 36415; 87040; 85025; 80053; 83605; 93971; J1885; J7120; J3370; J0696

== ENCOUNTER 2019-09-23 20:47 | Emergency (ER) | payer OTHER ==
--- NOTE | 2019-09-23 21:42 | ER Document Report ---
ED Medical Screen (RME) - General Chief Complaint: Leg Pain Stated Complaint: POSSIBLE INFECTION IN LEG GROIN AREA Time Seen by Provider: 09/23/19 21:37 Mode of Arrival: Ambulatory Information source: Patient Notes: 39-year-old male presented to ED for infection to the left leg and groin. He states he has been seen multiple times for this infection but at this time he has swollen lymph nodes pain and swelling to the left leg and groin. He states she has been told multiple times that he needs to go to the dermatology but the [facility] does not send him to dermatology. He states he has been given antibiotics multiple times. He states today his left lymph nodes in his groin are very swollen and painful. He states when he first got here his pain level was a 5/5 now the level is a 4/5. He states he took 2 aspirin before coming to the emergency room. He states earlier he did have chills and now he has body aches and aches to the groin. I have greeted and performed a rapid initial assessment of this patient. A comprehensive ED assessment and evaluation of the patient, analysis of test results and completion of medical decision making process will be conducted by an additional ED providers. TRAVEL OUTSIDE OF THE [place] 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[employer] Lives with: Family Family history: Reviewed & Not Pertinent - Past Medical History Cardiac Medical History: Reports: None Pulmonary Medical History: Reports: None EENT Medical History: Reports: None Neurological Medical History: Reports: None Endocrine Medical History: Reports: None Renal/ Medical History: Reports: None Malignancy Medical History: Reports None GI Medical History: Reports: None Musculoskeltal Medical History: Reports Hx Musculoskeletal Deformity, Reports Hx Musculoskeletal Trauma Skin Medical History: Reports Hx Psoriasis - Severe Psychiatric Medical History: Reports: Hx Depression, Hx Post Traumatic Stress Disorder Traumatic Medical History: Reports: None Infectious Medical History: Reports: None Past Surgical History: Reports: Hx Orthopedic Surgery - R knee ACL - Immunizations Immunizations up to date: No Hx Diphtheria, Pertussis, Tetanus Vaccination: No Physical Exam - Vital signs Vitals: Temp Pulse Resp BP Pulse Ox 98.9 F 124 H 16 139/84 H 94 09/23/19 21:03 09/23/19 21:03 09/23/19 21:03 09/23/19 21:03 09/23/19 21:03 Course - Vital Signs Vital signs: Temp Pulse Resp BP Pulse Ox 98.9 F 124 H 16 139/84 H 94 09/23/19 21:03 09/23/19 21:03 09/23/19 21:03 09/23/19 21:03 09/23/19 21:03
[2019-09-23 22:44] LABS: ABSOLUTE LYMPHOCYTES (AUTO) 1.3 10^3/uL (0.5-4.7); ABSOLUTE MONOCYTES (AUTO) 1.5 10^3/uL (0.1-1.4); ABSOLUTE NEUT (AUTO) 16.5 10^3/uL (1.7-8.2); BASOPHILS % (AUTO) 0.2 % (0-2); EOSINOPHILS % (AUTO) 0.1 % (0-6); HEMATOCRIT 48.3 % (37.9-51.0); HEMOGLOBIN 16.3 g/dL (13.5-17.0); LYMPHOCYTES % (AUTO) 6.9 % (13-45); MEAN CORPUSCULAR HEMOGLOBIN 30.4 pg (27.0-33.4); MEAN CORPUSCULAR HGB CONC 33.9 g/dL (32.0-36.0); MEAN CORPUSCULAR VOLUME 90 fl (80-97); MONOCYTES % (AUTO) 7.5 % (3-13); PLATELET COUNT 265 10^3/uL (150-450); RED BLOOD COUNT 5.39 10^6/uL (4.35-5.55); RED CELL DISTRIBUTION WIDTH 13.3 % (11.5-14.0); SEGMENTED NEUTROPHILS % (AUTO) 85.3 % (42-78); TOTAL CELLS COUNTED % (AUTO) 100 %; WHITE BLOOD COUNT 19.4 10^3/uL (4.0-10.5)
[2019-09-23 22:46] LABS: APPEARANCE,URINE CLEAR; BILIRUBIN,URINE NEGATIVE (NEGATIVE); COLOR,URINE YELLOW; GLUCOSE, URINE NEGATIVE (NEGATIVE); KETONES,URINE 20 mg/dL (NEGATIVE); PROTEIN,URINE NEGATIVE (NEGATIVE); URINE SPECIFIC GRAVITY 1.014; UROBILINOGEN,URINE NEGATIVE mg/dL (<2.0)
[2019-09-23 22:54] LABS: ALKALINE PHOSPHATASE 55 U/L (38-126); ANION GAP 15 (5-19); ASPARTATE AMINO TRANSFERASE 29 U/L (17-59); BILIRUBIN,DIRECT 0.1 mg/dL (0.0-0.4); BILIRUBIN,TOTAL 1.1 mg/dL (0.2-1.3); BLOOD UREA NITROGEN 17 mg/dL (7-20); CALCIUM 10.7 mg/dL (8.4-10.2); CARBON DIOXIDE 24 mmol/L (22-30); CHLORIDE 98 mmol/L (98-107); GLUCOSE 106 mg/dL (75-110); POTASSIUM 4.1 mmol/L (3.6-5.0); TOTAL PROTEIN 8.2 g/dL (6.3-8.2)
--- NOTE | 2019-09-23 22:55 | ER Document Report ---
ED General - General Chief Complaint: Leg Pain Stated Complaint: POSSIBLE INFECTION IN LEG GROIN AREA Time Seen by Provider: 09/23/19 21:37 Primary Care Provider: [facility] [Primary Care Provider] - Follow up as needed Mode of Arrival: Ambulatory Information source: Patient TRAVEL OUTSIDE OF THE [place] IN LAST 30 DAYS: No - HPI Onset: This afternoon Onset/Duration: Gradual Quality of pain: Achy Severity: Moderate Pain Level: 4 Associated symptoms: Other - Pain noted in left groin inguinal region and marianne nopathy appreciated at that time. Patient has a longstanding history of severe psoriasis. Currently is not on any medications for psoriasis. Immunosuppressive medications had been tried in the past with problems of incompatibility. Patient reports no open wounds at this time. Denies any cough sore throat headache shortness of breath abdominal pain nausea vomiting or diarrhea. Similar symptoms previously: Yes - Reports not uncommon he will develop a skin infection from his chronic psor Recently seen / treated by doctor: No - Related Data Allergies/Adverse Reactions: No Known Allergies Allergy (Verified 07/30/18 12:41) Past Medical History - General Information source: Patient - Social History Smoking Status: Never Smoker Cigarette use (# per day): No - Former Chew tobacco use (# tins/day): No Frequency of alcohol use: None Drug Abuse: None Occupation: Training for infantry Lives with: Family Family History: Hypertension Patient has suicidal ideation: No Patient has homicidal ideation: No - Past Medical History Cardiac Medical History: Reports: None Pulmonary Medical History: Reports: None EENT Medical History: Reports: None Neurological Medical History: Reports: None Endocrine Medical History: Reports: None Renal/ Medical History: Reports: None Malignancy Medical History: Reports None GI Medical History: Reports: None Musculoskeletal Medical History: Reports Hx Musculoskeletal Deformity, Reports Hx Musculoskeletal Trauma Skin Medical History: Reports Hx Psoriasis - Severe Psychiatric Medical History: Reports: Hx Depression, Hx Post Traumatic Stress Disorder Traumatic Medical History: Reports: None Infectious Medical History: Reports: None Past Surgical History: Reports: Hx Orthopedic Surgery - R knee ACL - Immunizations Immunizations up to date: No Hx Diphtheria, Pertussis, Tetanus Vaccination: No Review of Systems - Review of Systems Constitutional: See HPI Cardiovascular: No symptoms reported Respiratory: No symptoms reported Gastrointestinal: No symptoms reported Genitourinary: No symptoms reported Male Genitourinary: No symptoms reported Musculoskeletal: No symptoms reported Skin: See HPI Hematologic/Lymphatic: No symptoms reported Neurological/Psychological: No symptoms reported Physical Exam - Vital signs Vitals: Temp Pulse Resp BP Pulse Ox 98.9 F 124 H 16 139/84 H 94 09/23/19 21:03 09/23/19 21:03 09/23/19 21:03 09/23/19 21:03 09/23/19 21:03 Interpretation: Normal - Notes Notes: Severe obesity - General General appearance: Appears well, Alert In distress: Moderate - HEENT Head: Normocephalic, Atraumatic Eyes: Normal Conjunctiva: Normal Extraocular movements intact: Yes Pupils: PERRL Nasal: Normal Mucous membranes: Normal Pharynx: Normal Neck: Normal - Respiratory Respiratory status: No respiratory distress Chest status: Nontender Breath sounds: Normal Chest palpation: Normal - Cardiovascular Rhythm: Regular Heart sounds: Normal auscultation Murmur: No - Abdominal Inspection: Normal, Obese Distension: No distension Bowel sounds: Normal Tenderness: Nontender Organomegaly: No organomegaly - Back Back: Normal, Nontender - Extremities General upper extremity: Normal inspection, Nontender, Normal color, Normal ROM, Normal temperature General lower extremity: Normal inspection, Nontender, Normal color, Normal ROM, Normal temperature, Normal weight bearing. No: Luciano's sign Thigh: Other - Tenderness noted in the left groin inguinal region. No hernia appreciated erythema present but no warmth to the skin or any open wound. Shotty inguinal adenopathy appreciated. Patient scrotal sac is nontender no swelling. - Neurological Neuro grossly intact: Yes Cognition: Normal Orientation: AAOx4 Juan [place] Coma Scale Eye Opening: Spontaneous Juan Manuel Coma Scale Verbal: Oriented Juan Manuel Coma Scale Motor: Obeys Commands [place] Coma Scale Total: 15 Speech: Normal Cranial nerves: Normal Motor strength normal: LUE, RUE, LLE, RLE Sensory: Normal - Psychological Associated symptoms: Normal affect, Normal mood - Skin Skin Temperature: Warm Skin Moisture: Dry Skin Color: Normal Skin Turgor: Elastic Irregularity with: Thickening, Well defined border, Crusting, Rough texture-sand paper, Other - Diffuse multiple plaque like white patchy psoriatic appearing dry lesions over entire body including extremities back part of his face. Appears to be concentrated over joints in the lower extremity and over his hands. There are no open wounds draining any exudate or pus or clear fluids. Course - Vital Signs Vital signs: Temp Pulse Resp BP Pulse Ox 98.9 F 91 16 113/79 95 09/23/19 21:36 09/23/19 23:37 09/23/19 21:36 09/23/19 23:37 09/23/19 23:37 - Laboratory Result Diagrams: 09/23/19 22:10 09/23/19 22:10 Laboratory results interpreted by me: 09/23/19 09/23/19 09/23/19 21:55 22:10 22:10 WBC 19.4 H Lymph % (Auto) 6.9 L Absolute Neuts (auto) 16.5 H Absolute Monos (auto) 1.5 H Seg Neutrophils % 85.3 H Calcium 10.7 H Urine Ketones 20 H Leukocyte Esterase Rfl TRACE H - Diagnostic Test Radiology reviewed: Image reviewed Discharge - Discharge Clinical Impression: Leukocytosis, unspecified Cellulitis Qualifiers: Site of cellulitis of extremity: lower extremity Laterality: left Condition: Stable Disposition: HOME, SELF-CARE Prescriptions: Clindamycin HCl 300 mg PO TID #30 capsule Ibuprofen [Ibu] 800 mg PO TID PRN #30 tablet PRN Reason: For Pain Scale 4-5 [facility]errals[facility] [Primary Care [facility]] - Follow up as needed
[2019-09-24] MEDS ORDERED: NORMAL SALINE 1000 ML 1,000 ML IV ONE (00:50)
[2019-09-24] MEDS ORDERED: CLINDAMYCIN 900 MG/D5W RTU 900 MG/50 ML RTUPB IV SCH (01:00)
--- NOTE | 2019-09-24 02:50 | RADIOLOGY REPORT (SQ) ---
EXAM DESCRIPTION: XR CHEST 1 VIEW COMPLETED DATE/TME: 09/24/2019 01:14 CLINICAL HISTORY: 39 years, Male, leukocytosis COMPARISON: 03/07/2017 chest NUMBER OF VIEWS: 1 TECHNIQUE: Portable chest LIMITATIONS: None. FINDINGS: Heart size is normal. Lungs are clear. No pneumothorax IMPRESSION: No acute cardiopulmonary process copyright 2010 [employer]- All Rights Reserved
[2019-09-24 03:17] VITALS: BP 122/77
== END 2019-09-24 03:15 | disposition home or self-care (01) ==
LOC: ER 20:47
DX: L03.116 Cellulitis of left lower limb (principal); D72.829 Elevated white blood cell count, unspecified; L98.9 Disorder of the skin and subcutaneous tissue, unspecified; R59.0 Localized enlarged lymph nodes; E66.9 Obesity, unspecified; Z87.2 Personal history of diseases of the skin and subcutaneous tissue
CPT/HCPCS: 99283; 96365; 36415; 87040; 87086; 85025; 80053; 81001; 71045; J3490; J7030